=== PATIENT | female | born 1965 | race Caucasian/White ===

== ENCOUNTER 2017-07-29 13:37 | Inpatient (IN) | payer MEDICAID ==
[~2017-07-29] VITALS: Ht 167.6 cm; Wt 67.3 kg
[2017-07-29] MEDS ORDERED: LACT10SO PO (13:51)
[2017-07-29] MEDS ORDERED: SPIR50TA3 PO (13:51)
[2017-07-29] MEDS ORDERED: ALPR1TAB7 PO (13:51)
[2017-07-29] MEDS ORDERED: RIFA550T PO (13:51)
[2017-07-29] MEDS ORDERED: OXYC10TA49 PO (13:51)
[2017-07-29] MEDS ORDERED: MIDO5TAB PO (13:51)
[2017-07-29] MEDS ORDERED: VENL75CA56 PO (13:51)
[2017-07-29] MEDS ORDERED: HYDR10SY16 PO (13:51)
[2017-07-29 14:55] LABS: BILIRUBIN,TOTAL 1.1 mg/dL (0.2-1.0); CREATININE 0.7 mg/dL (0.6-1.3); POTASSIUM 3.9 mmol/L (3.5-5.1); TOTAL PROTEIN, SERUM 7.3 g/dL (6.4-8.2)
[2017-07-29 15:21] LABS: BASOPHILS % (AUTO) 0.6 % (0.0-2.0); EOSINOPHILS % (AUTO) 0.4 % (0.0-7.0); HEMATOCRIT 30.5 % (31.2-41.9); HEMOGLOBIN 10.2 g/dL (10.9-14.3); LYMPHOCYTES # (AUTO) 0.2 K/uL (20.0-40.0); LYMPHOCYTES % (AUTO) 18.6 % (20.5-51.5); MEAN CORPUSCULAR HEMOGLOBIN 30.9 uug (24.7-32.8); MEAN CORPUSCULAR HGB CONC 33 g/dL (32.3-35.6); MEAN CORPUSCULAR VOLUME 92.9 fL (75.5-95.3); MONOCYTES # (AUTO) 0.2 K/uL (2.0-10.0); MONOCYTES % (AUTO) 18.2 % (0.0-11.0); NEUTROPHILS # (AUTO) 0.8 K/uL (1.8-8.9); NEUTROPHILS % (AUTO) 62.2 % (38.5-71.5); PLATELET COUNT (AUTO) 50 K/uL (179-408); RED BLOOD CELL COUNT(AUTO) 3.29 MIL/uL (3.63-4.92)
[2017-07-29 15:33] LABS: WHITE BLOOD COUNT (AUTO) 1.3 K/uL (3.8-11.8)
[2017-07-29] MEDS ORDERED: LACTULOSE 20 G/30 ML LIQUID UDC PO ONE (16:00)
[2017-07-29 16:01] LABS: LYMPHOCYTES % (MANUAL) 26 % (20-40); NEUTROPHILS % (MANUAL) 62 % (42-75)
[2017-07-29 16:02] LABS: EOSINOPHILS % (MANUAL) 2 % (0-8); MONOCYTES % (MANUAL) 10 % (2-10)
--- NOTE | 2017-07-29 18:00 | NUR ---
Pt.was admitted from ER, A/A/Ox3 no s/s of distress.
--- NOTE | 2017-07-29 18:15 | NUR ---
SECOND CLASS WELDER:JENNA PARRA WAS PAGED FOR ADMITTING ORDERS.
[2017-07-29 18:22] VITALS: BP 99/49
--- NOTE | 2017-07-29 18:40 | NUR ---
pt is asking for pain for her abdominal hernia, BP 99/49. informed Isabell Parker COAL AND ASH SUPERVISOR and order given and okay to give with it
[2017-07-29] MEDS ORDERED: MORPHINE SULFATE 2 MG/1 ML DISP.SYRIN IV PRN (18:45)
[2017-07-29] MEDS ORDERED: ONDANSETRON 4 MG/2 ML VIAL IV PRN (19:45)
[2017-07-29] MEDS ORDERED: MAGNESIUM HYDROXIDE 30 ML LIQUID UDC PO PRN (19:45)
[2017-07-29] MEDS ORDERED: ZOLPIDEM 5 MG TABLET PO PRN (19:45)
[2017-07-29] MEDS ORDERED: ACETAMINOPHEN 325 MG TABLET PO PRN (19:45)
[2017-07-29] MEDS ORDERED: Z GUARD REMEDY PASTE 57 GM TUBE TOP PRN (19:45)
[2017-07-29 20:05] VITALS: BP 111/85
[2017-07-29] MEDS: MORPHINE SULFATE 4 MG/1 ML DISP.SYRIN IV PRN (20:41)
--- NOTE | 2017-07-29 21:00 | NUR ---
Patient alert and awake on bed. on Sinus Rhythm with HR of 84, RR of 18. Patient verbalized pain on abdominal area with a pain scale of 10, exhibiting guarding behavior to site. Patient has no sign of respiratory distress or chest pain. Administered 2mg/0.5mL of morphine. Will reassess pain after 30 minutes.
[2017-07-29] MEDS: LACTULOSE 20 G/30 ML LIQUID UDC PO SCH (21:37)
[2017-07-30 00:05] VITALS: BP 106/42
[2017-07-30 00:17] LABS: *BILIRUBIN,URIN NEGATIVE (NEGATIVE); *BLOOD, URINE NEGATIVE (NEGATIVE); *CLARITY,URINE CLEAR (CLEAR); *COLOR,URINE YELLOW (YELLOW); *KETONES,URINE NEGATIVE (NEGATIVE); *PROTEIN,URINE NEGATIVE (NEGATIVE); LEUKOCYTE ESTERASE ,URINE NEGATIVE (NEGATIVE); NITRITE, URINE NEGATIVE (NEGATIVE); UGLUCOSE NEGATIVE (NEGATIVE)
[2017-07-30 00:31] LABS: BACTERIA,URINE NONE SEEN /HPF (NONE SEEN); RBC,URINE NONE SEEN /HPF (0-3); SQUAMOUS EPITHELIAL CELL,UR FEW /HPF (NONE SEEN); WBC,URINE 0-3 /HPF (0-3)
[2017-07-30 04:00] VITALS: BP 104/46
[2017-07-30 06:07] LABS: LYMPHOCYTES # (AUTO) 0.3 K/uL (20.0-40.0); MONOCYTES # (AUTO) 0.2 K/uL (2.0-10.0); NEUTROPHILS # (AUTO) 0.7 K/uL (1.8-8.9)
[2017-07-30 06:11] LABS: BASOPHILS % (AUTO) 1.4 % (0.0-2.0); EOSINOPHILS % (AUTO) 0.6 % (0.0-7.0); HEMATOCRIT 28.2 % (31.2-41.9); HEMOGLOBIN 9.5 g/dL (10.9-14.3); LYMPHOCYTES % (AUTO) 24.7 % (20.5-51.5); MEAN CORPUSCULAR HEMOGLOBIN 30.9 uug (24.7-32.8); MEAN CORPUSCULAR HGB CONC 34 g/dL (32.3-35.6); MEAN CORPUSCULAR VOLUME 91.6 fL (75.5-95.3); MONOCYTES % (AUTO) 15.4 % (0.0-11.0); NEUTROPHILS % (AUTO) 57.9 % (38.5-71.5); RED BLOOD CELL COUNT(AUTO) 3.08 MIL/uL (3.63-4.92)
[2017-07-30 06:29] LABS: CREATININE 0.7 mg/dL (0.6-1.3); MAGNESIUM 1.5 mg/dL (1.8-2.4); PHOSPHOROUS 3.8 mg/dL (2.5-4.9); POTASSIUM 3.6 mmol/L (3.5-5.1)
[2017-07-30 06:34] LABS: PLATELET COUNT (AUTO) 47 K/uL (179-408); WHITE BLOOD COUNT (AUTO) 1.2 K/uL (3.8-11.8)
--- NOTE | 2017-07-30 07:02 | NUR ---
patient remained rested the whole night. on sinus rhythm with HR of 81. No chest pain, no SOB. pt kept clean and dry. endorsed SBAR report to day shift nurse
[2017-07-30 07:32] LABS: EOSINOPHILS % (MANUAL) 1 % (0-8); LYMPHOCYTES % (MANUAL) 26 % (20-40); MONOCYTES % (MANUAL) 14 % (2-10); NEUTROPHILS % (MANUAL) 59 % (42-75)
--- NOTE | 2017-07-30 08:00 | NUR ---
CONTINUE WITH PAIN MANAGEMENT FOR ABDOMINAL PAIN WITH RELIEF
[2017-07-30] MEDS: LACTULOSE 20 G/30 ML LIQUID UDC PO SCH ×2 (08:42→20:29)
--- NOTE | 2017-07-30 11:00 | NUR ---
SEEN BY DALILA PARRA SEE NOTES
[2017-07-30] MEDS: MORPHINE SULFATE 4 MG/1 ML DISP.SYRIN IV PRN (11:54)
[2017-07-30 12:05] VITALS: BP 96/54
[2017-07-30] MEDS: MAGNESIUM SULFATE/D5W 100 ML IV SCH ×2 (14:01→15:45)
--- NOTE | 2017-07-30 14:21 | NUR ---
ABDOMINAL BINDER APPLIED FOR ABDOMINAL HERNIA DR MCCALLUM"S DRAW HAND
[2017-07-30 16:15] VITALS: BP 97/46
[2017-07-30 19:00] VITALS: BP 95/51
--- NOTE | 2017-07-30 19:30 | NUR ---
RECEIVED PATIENT AWAKE ON BED. AO X 4. NO SIGNS OF RESPIRATORY DISTRESS, NO CHEST PAIN. IV SITE ON LFA, PATENT AND INTACT. ABD BINDER IN PLACE. DENIES ANY PAIN AT THIS TIME. SAFETY MEASURES INITIATED. KEPT CALL LIGHT WITHIN REACH.
--- NOTE | 2017-07-30 20:00 | NUR ---
AT 1954 PATIENT APPEARS ANXIOUS AND CRYING, ASKING FOR ANTIANXIETY MEDICATION. EMOTIONAL SUPPORT PROVIDED. INFORMED DALILA PARRA ON PATIENT'S CONDITION. AT 1999, DALILA PARRA ORDERED TO START PATIENT ON XANAX 1 MG Q8H PRN FOR ANXIETY. ORDER NOTED AND CARRIED OUT.
[2017-07-30] MEDS ORDERED: ALPRAZOLAM 0.5 MG TABLET PO PRN (20:15)
[2017-07-31 04:00] VITALS: BP 104/80
[2017-07-31] MEDS: MORPHINE SULFATE 4 MG/1 ML DISP.SYRIN IV PRN ×2 (06:28→11:30)
--- NOTE | 2017-07-31 06:53 | NUR ---
PATIENT REMAINED RESTED. NO SOB, NO CHEST PAIN, VITAL SIGNS WNL. SAFETY MEASURES MAINTAINED.
[2017-07-31 06:59] LABS: CREATININE 0.7 mg/dL (0.6-1.3); MAGNESIUM 1.7 mg/dL (1.8-2.4); PHOSPHOROUS 3.6 mg/dL (2.5-4.9); POTASSIUM 3.2 mmol/L (3.5-5.1)
[2017-07-31 07:13] LABS: EOSINOPHILS % (AUTO) 0.6 % (0.0-7.0); MONOCYTES # (AUTO) 0.2 K/uL (2.0-10.0)
[2017-07-31 07:22] LABS: BASOPHILS % (AUTO) 1.2 % (0.0-2.0); LYMPHOCYTES # (AUTO) 0.2 K/uL (20.0-40.0); LYMPHOCYTES % (AUTO) 19.1 % (20.5-51.5); MEAN CORPUSCULAR HEMOGLOBIN 31.6 uug (24.7-32.8); MEAN CORPUSCULAR HGB CONC 34 g/dL (32.3-35.6); MEAN CORPUSCULAR VOLUME 91.8 fL (75.5-95.3); MONOCYTES % (AUTO) 15.1 % (0.0-11.0); NEUTROPHILS # (AUTO) 0.8 K/uL (1.8-8.9); RED BLOOD CELL COUNT(AUTO) 3.15 MIL/uL (3.63-4.92)
--- NOTE | 2017-07-31 07:25 | NUR ---
Received report from water treatment specialist nurse, patient in bed awake, no distress noted, bed in low position, side rails up x2, bed alarm on.
[2017-07-31 07:34] LABS: PLATELET COUNT (AUTO) 47 K/uL (179-408); WHITE BLOOD COUNT (AUTO) 1.2 K/uL (3.8-11.8)
[2017-07-31] MEDS: LACTULOSE 20 G/30 ML LIQUID UDC PO SCH (08:56)
[2017-07-31 10:50] LABS: BAND % (MANUAL) 4 % (0-10); BASOPHILS % (MANUAL) 1 % (0-2); EOSINOPHILS % (MANUAL) 2 % (0-8); LYMPHOCYTES % (MANUAL) 19 % (20-40); MONOCYTES % (MANUAL) 16 % (2-10); NEUTROPHILS % (MANUAL) 58 % (42-75)
[2017-07-31 11:52] VITALS: BP 104/54
[2017-07-31 12:16] LABS: THYROID STIMULATING HORMONE 5.003 mIU/mL (0.358-3.740)
[2017-07-31 12:19] LABS: *RHEUMATOID FACTOR SCREEN NEGATIVE (NEGATIVE)
[2017-07-31] MEDS ORDERED: PARO25TA16 PO (14:09)
[2017-07-31] MEDS ORDERED: FOLI1TAB16 PO (14:16)
[2017-07-31] MEDS ORDERED: MAGNESIUM OXIDE 400 MG TABLET PO ONE (15:15)
--- NOTE | 2017-07-31 15:33 | NUR ---
PATIENT WAS GIVEN DISCHARGE INSTRUCTIONS, IV REMOVED, PATIENT REFUSED TO HAVE PICTURES OF ABDOMEN TAKEN. REPORT CALLED TO [facility]. BELONGINGS ARE ACCOUNTED FOR.
[2017-08-01 08:07] LABS: *IMMUNOGLOBULIN G, SERUM 1994 mg/dL (700-1600); IMMUNOGLOBULIN A, SERUM 313 mg/dL (87-352); IMMUNOGLOBULIN M, SERUM 715 mg/dL (26-217)
[2017-08-01] MEDS ORDERED: PAROXETINE HCL 10 MG TABLET PO SCH (09:00)
[2017-08-01 11:07] LABS: *ANTI-SCLERODERMA-70 AB <0.2 AI (0.0-0.9); *SJOGREN'S ANTI-SS-A >8.0 AI (0.0-0.9); *SJOGREN'S ANTI-SS-B >8.0 AI (0.0-0.9); *SMITH ANTIBODIES <0.2 AI (0.0-0.9); ANTI-DNA(DS) AB, QN 2 IU/mL (0-9)
[2017-08-01 12:06] LABS: HEPATITIS B SURFACE AB Non Reactive (.); HEPATITIS B SURFACE AG Negative (Negative)
[2017-08-03 08:09] LABS: A/G RATIO 0.6 (0.7-1.7); ALBUMIN 2.7 g/dL (2.9-4.4); ALPHA-1-GLOBULIN 0.3 g/dL (0.0-0.4); ALPHA-2-GLOBULIN 0.5 g/dL (0.4-1.0); BETA GLOBULIN 0.8 g/dL (0.7-1.3); GAMMA GLOBULIN 2.7 g/dL (0.4-1.8); GLOBULIN, TOTAL 4.3 g/dL (2.2-3.9); M-SPIKE Not Observed g/dL (Not Observed)
== END 2017-07-31 15:50 | DRG 660 ==
LOC: ER 13:37 → TELE 17:44 → MED 07-30 14:29
PROVIDERS: ADMIT Nurse Practitioner Acute Care; ATTEND Nurse Practitioner Acute Care
DX: D61.818 Other pancytopenia (principal); K76.6 Portal hypertension; K70.31 Alcoholic cirrhosis of liver with ascites; K72.90 Hepatic failure, unspecified without coma; K74.60 Unspecified cirrhosis of liver; F10.11 Alcohol abuse, in remission; Y90.9 Presence of alcohol in blood, level not specified; B19.20 Unspecified viral hepatitis C without hepatic coma; K42.9 Umbilical hernia without obstruction or gangrene; Z86.19 Personal history of other infectious and parasitic diseases; F41.9 Anxiety disorder, unspecified; F32.9 Major depressive disorder, single episode, unspecified; R74.0 Nonspecific elevation of levels of transaminase and lactic acid dehydrogenase [LDH]
CPT/HCPCS: 36415; 70030-TC; 71045; 82105; 82746; 82784; 83550; 83735; 84100; 84155; 84165; 84443; 84703; 85025; 85610; 86038; 86140; 86334; 86430; 86706; 86803; 87340; 87806; 92523; 93005; A4663; J2270; J3475; J7050

== ENCOUNTER 2018-11-25 18:14 | Inpatient (IN) | payer BC, MEDICAID ==
[~2018-11-25] VITALS: Ht 167.6 cm; Wt 68.0 kg
[~2018-11-25 18:14] MED LIST: ALPR1TAB7 PO; FOLI1TAB16 PO; HYDR10SY16 PO; LACT10SO PO; MIDO5TAB5 PO; OXYC10TA49 PO; PARO25TA16 PO; RIFA550T PO; SPIR50TA5 PO; VENL75CA56 PO
[2018-11-25] MEDS ORDERED: LACT10SO58 PO (18:39)
[2018-11-25] MEDS ORDERED: DEXT1DRO6 EACHEYE (18:39)
[2018-11-25] MEDS ORDERED: OXYC5CAP18 PO (18:39)
--- NOTE | 2018-11-25 18:49 | NUR ---
PT IS IN ROOM #1B. DR HUDSON EVALUATED THE PT.
--- NOTE | 2018-11-25 19:40 | NUR ---
DRONE SOFTWARE DEVELOPMENT ENGINEER (PREFERRED) TAMI ON THE PHONE FOR CLINICALS CALL BACK [phone] PENDING CALL BACK FOR RECEIVING PHYSICIAN FROM [facility] [phone]
[2018-11-25 19:43] LABS: EOSINOPHILS # (AUTO) 0.1 K/uL (0.0-0.7); HEMOGLOBIN 11.4 g/dL (10.9-14.3); LYMPHOCYTES # (AUTO) 0.4 K/uL (20.0-40.0); MONOCYTES # (AUTO) 0.2 K/uL (2.0-10.0); NEUTROPHILS # (AUTO) 1.1 K/uL (1.8-8.9)
[2018-11-25 19:45] LABS: BASOPHILS % (AUTO) 1.4 % (0.0-2.0); EOSINOPHILS % (AUTO) 5.2 % (0.0-7.0); HEMATOCRIT 34.9 % (31.2-41.9); LYMPHOCYTES % (AUTO) 22.2 % (20.5-51.5); MEAN CORPUSCULAR HEMOGLOBIN 30.7 uug (24.7-32.8); MEAN CORPUSCULAR HGB CONC 33 g/dL (32.3-35.6); MEAN CORPUSCULAR VOLUME 93.7 fL (75.5-95.3); MONOCYTES % (AUTO) 11.6 % (0.0-11.0); NEUTROPHILS % (AUTO) 59.6 % (38.5-71.5); PLATELET COUNT (AUTO) 72 K/uL (179-408); RED BLOOD CELL COUNT(AUTO) 3.72 MIL/uL (3.63-4.92)
[2018-11-25] MEDS ORDERED: LORAZEPAM 2 MG/1 ML VIAL IV ONE ×2 (19:45→20:45)
--- NOTE | 2018-11-25 19:45 | NUR ---
PT IS NONCOMPLIANT AND AGITATED, KEPT SAYING NO TO ALL INTERVENTIONS AND EXTREMELY CONFUSED AOX1 PT UNABLE TO BE BROUGHT TO CT AT THIS TIME DUE TO NONCOMPLIANCE, YELLING AND SCREAMING BEHAVIOR PT STILL AGITATED DESPITE IV MEDS ERMD AWARE
[2018-11-25 19:57] LABS: WHITE BLOOD COUNT (AUTO) 1.8 K/uL (3.8-11.8)
[2018-11-25 20:03] LABS: CREATININE 0.7 mg/dL (0.6-1.3); POTASSIUM 4.1 mmol/L (3.5-5.1)
[2018-11-25 20:08] LABS: BILIRUBIN,DIRECT 0.7 mg/dL (0.0-0.2); BILIRUBIN,TOTAL 1.7 mg/dL (0.2-1.0); TOTAL PROTEIN, SERUM 7.3 g/dL (6.4-8.2)
[2018-11-25 20:22] LABS: BAND % (MANUAL) 7 % (0-10); EOSINOPHILS % (MANUAL) 5 % (0-8); LYMPHOCYTES % (MANUAL) 24 % (20-40); MONOCYTES % (MANUAL) 11 % (2-10); NEUTROPHILS % (MANUAL) 53 % (42-75)
[2018-11-25 20:27] LABS: THYROID STIMULATING HORMONE 5.074 mIU/mL (0.358-3.740)
[2018-11-25] MEDS ORDERED: LORAZEPAM 2 MG/1 ML VIAL ONE ×2 (20:30→20:51)
[2018-11-25] MEDS ORDERED: diphenhydrAMINE 50 MG/1 ML VIAL IV ONE (20:45)
[2018-11-25] MEDS ORDERED: diphenhydrAMINE 50 MG/1 ML VIAL ONE (20:51)
--- NOTE | 2018-11-25 21:23 | NUR ---
PT TRANSPORTED VIA GURNEY TO CT ACCOMPANIED BY SRAVANI LEONARDOX2 UP BED AT LOWEST POSITION G20 SALINE LOCK INTACT TO LEFT FOREARM
--- NOTE | 2018-11-25 21:39 | NUR ---
PT BROUGHT BACK BY HVAC INSTALLER VIA UNABLE TO OBTAIN CT SCAN DUE TO NONCOMPLIANCE Addendum: 11/25/18 at 2142 by NEPTALI TECH STATES ABLE TO OBTAIN CT SCAN
[2018-11-25] MEDS ORDERED: Medication Not On Formulary EA (Oxycodone Hcl 5 MG) PO SCH (22:00)
[2018-11-25] MEDS ORDERED: Medication Not On Formulary EA (Lactulose (Duphalac) 30 ML) PO SCH (22:00)
[2018-11-25] MEDS ORDERED: HALOPERIDOL LACTATE 5 MG/1 ML VIAL IM PRN (22:00)
--- NOTE | 2018-11-25 22:11 | NUR ---
CALL BACK RECEIVED FR ORANGE PEEL OPERATOR, WAITING ON MD TO MD YESICA BURGESS (DR KAUFMAN)
[2018-11-25 22:26] LABS: *BLOOD, URINE NEGATIVE (NEGATIVE); *COLOR,URINE DARK YELLOW (YELLOW); *KETONES,URINE 1+ (NEGATIVE); *UROBILINOGEN,URINE 0.2 E.U./dl (NORMAL); LEUKOCYTE ESTERASE ,URINE NEGATIVE (NEGATIVE); NITRITE, URINE NEGATIVE (NEGATIVE); PH,URINE 5.5 (5.0-8.0); UGLUCOSE NEGATIVE (NEGATIVE)
[2018-11-25 22:34] LABS: *BILIRUBIN,URIN 1+ (NEGATIVE); *CLARITY,URINE HAZY (CLEAR)
[2018-11-25 22:37] LABS: BACTERIA,URINE NONE SEEN /HPF (NONE SEEN); RBC,URINE 0-3 /HPF (0-3); SQUAMOUS EPITHELIAL CELL,UR MODERATE /HPF (NONE SEEN)
[2018-11-25 22:38] LABS: MUCUS,URINE MANY /LPF (0-FEW)
--- NOTE | 2018-11-25 22:43 | NUR ---
ERMD ON THE PHONE WITH YESCIA KAUFMAN MD Addendum: 11/25/18 at 2244 by NEPTALI ERMD ON THE PHONE WITH TRAINS DISPATCHER SUPERVISOR PT WILL BE ADMITTED TO [facility]
--- NOTE | 2018-11-25 22:45 | NUR ---
DAISY ON THE PHONE WITH ADOBE BLOCK MAKER ([facility]) DR AZUL
--- NOTE | 2018-11-25 23:13 | NUR ---
HAND OFF AND SBAR GIVEN TO WILL RN PENDING CALL BACK FROM DR AZUL PT WILL BE ADMITTED TO TELE RM 307 DX AMS L FOREARM G20 SALINE LOCK INTACT PT AWAKE BUT STILL CONFUSED SIDERAILSX2 UP, BED AT LOWEST POSITION
--- NOTE | 2018-11-25 23:20 | NUR ---
TRANSPORTED VIA GURNEY ACCOMPANIED BY ERLVN MRSA SURVEILLANCE DONE BOTH NARES ALL BELONGINGS W/ PT SIDERAILSX2 UP BED AT LOWEST POSITION
--- NOTE | 2018-11-25 23:30 | NUR ---
ADMITTED IN MED SURG FLOOR UNDER THE CARE OF DR. IRIZARRY. PATIENT ALERT BUT MENTALLY ALTERED, POOR HISTORIAN, BODY CHECK DONE WITH BILATERAL FEET DRYNESS, ABDOMINAL INCISION SCAR, NO DENTURES, SAVITA JUDD ASSESSMENT FOR PAIN WITH NOTED MILD GEN BODY PAIN. KEPT COMFORTABLE, BED ALARM WAS PUT ON FOR RISK FOR FALL. CONT TO MONITOR.
[2018-11-26 01:00] VITALS: BP 107/38
[2018-11-26 04:00] VITALS: BP 122/52
--- NOTE | 2018-11-26 05:34 | NUR ---
PATIENT ALERT BUT ALTERED, NO S/S OF CHEST PAIN, PATIENT RESISTIVE TO CARE, REFUSED TO TURN AND REPOSITION. PATIENT WAS KEPT CLEAN AND DRY. PATIENT HAS EPISODE OF YELLING AND SCREAMING WHEN PROVIDING ADL'S, CONT TO MONITOR.
[2018-11-26 06:56] LABS: EOSINOPHILS # (AUTO) 0.1 K/uL (0.0-0.7); HEMOGLOBIN 11.3 g/dL (10.9-14.3); MEAN CORPUSCULAR VOLUME 94.9 fL (75.5-95.3); MONOCYTES # (AUTO) 0.1 K/uL (2.0-10.0); NEUTROPHILS # (AUTO) 1.3 K/uL (1.8-8.9)
[2018-11-26 07:06] LABS: THYROID STIMULATING HORMONE 7.03 mIU/mL (0.358-3.740)
[2018-11-26 07:11] LABS: BASOPHILS % (AUTO) 0.7 % (0.0-2.0); HEMATOCRIT 34.4 % (31.2-41.9); LYMPHOCYTES # (AUTO) 0.2 K/uL (20.0-40.0); LYMPHOCYTES % (AUTO) 14.3 % (20.5-51.5); MEAN CORPUSCULAR HEMOGLOBIN 31.2 uug (24.7-32.8); MEAN CORPUSCULAR HGB CONC 33 g/dL (32.3-35.6); MONOCYTES % (AUTO) 8.4 % (0.0-11.0); NEUTROPHILS % (AUTO) 73.6 % (38.5-71.5); RED BLOOD CELL COUNT(AUTO) 3.62 MIL/uL (3.63-4.92)
[2018-11-26 07:13] LABS: WHITE BLOOD COUNT (AUTO) 1.7 K/uL (3.8-11.8)
[2018-11-26 07:14] LABS: PLATELET COUNT (AUTO) 67 K/uL (179-408)
--- NOTE | 2018-11-26 07:17 | NUR ---
PATIENT LAB REPORT WBC 1.7 AND PLATELET 67. ENDORSED TO YUSEF ELIZONDO FOR FOLLOW UP WITH .
[2018-11-26 07:23] LABS: BILIRUBIN,TOTAL 1.8 mg/dL (0.2-1.0); CREATININE 0.6 mg/dL (0.6-1.3); MAGNESIUM 1.7 mg/dL (1.8-2.4); PHOSPHOROUS 2.9 mg/dL (2.5-4.9); POTASSIUM 4.1 mmol/L (3.5-5.1); TOTAL PROTEIN, SERUM 7.6 g/dL (6.4-8.2)
--- NOTE | 2018-11-26 07:45 | NUR ---
INFORMED DR LOCO OF CRITICAL LAB VALUE OF WBC 1.[address] AWARE. NO NEW ORDERS GIVEN. Addendum: 11/26/18 at 0814 by YUSEF CASTILLO RN RECEIVED PT RESTING COMFORTABLY. NO SIGNS OF ACUTE DISTRESS OR SOB NOTED. BED LOCKED IN LOW POSITION. CRITICAL LAB VALUES GIVEN TO DR LOCO. CALL LIGHT WITHIN REACH. WILL CONTINUE TO MONITOR.
[2018-11-26] MEDS: FOLIC ACID 1 MG TABLET PO SCH (09:01)
[2018-11-26] MEDS: VENLAFAXINE XR 75 MG CAP.SR.24H PO SCH (09:01)
[2018-11-26] MEDS: SPIRONOLACTONE 50 MG TABLET PO SCH (09:02)
[2018-11-26] MEDS: MIDODRINE HCL 5 MG TABLET PO SCH ×2 (09:04→18:15)
[2018-11-26] MEDS ORDERED: LACTULOSE 20 G/30 ML LIQUID UDC PO PRN (09:45)
[2018-11-26] MEDS ORDERED: OXYCODONE HCL 5 MG TABLET PO PRN (09:45)
[2018-11-26] MEDS ORDERED: ALPRAZOLAM 0.5 MG TABLET PO PRN (09:45)
[2018-11-26 11:14] LABS: BAND % (MANUAL) 7 % (0-10); BASOPHILS % (MANUAL) 2 % (0-2); EOSINOPHILS % (MANUAL) 2 % (0-8); LYMPHOCYTES % (MANUAL) 10 % (20-40); MONOCYTES % (MANUAL) 5 % (2-10); NEUTROPHILS % (MANUAL) 74 % (42-75)
[2018-11-26 11:31] VITALS: BP 119/46
--- NOTE | 2018-11-26 12:52 | NUR ---
PT RESTING COMFORTABLY IN BED. PT ASLEEP. NO SIGNS OF ACUTE DISTRESS OR SOB. CALL LIGHT WITHIN REACH. BED LOCKED IN LOW POSITION. PT IS MEDICATION COMPLIANT. WILL CONTINUE TO MONITOR.
[2018-11-26 15:32] VITALS: BP 101/46
--- NOTE | 2018-11-26 18:00 | NUR ---
PT RESTING COMFORTABLY IN BED. IV CHANGED TO RIGHT HAND. CURRENTLY IV RUNNING WITH 2ND BAG OF MAG. PT IS MED COMPLIANT. NO ACUTE DISTRESS NOTED. NO SOB NOTED. CALL LIGHT WITHIN REACH. BED LOCKED IN LOW POSITION. REPORT GIVEN TO [facility] REGISTRY NURSE.
[2018-11-26] MEDS: MAGNESIUM SULFATE/D5W 100 ML IV SCH ×2 (18:15→19:12)
[2018-11-26 20:21] VITALS: BP 102/41
[2018-11-26] MEDS: LACTULOSE 20 G/30 ML LIQUID UDC PO SCH (21:00)
[2018-11-27 05:42] VITALS: BP 111/55
[2018-11-27] MEDS ORDERED: LEVOTHYROXINE SODIUM 25 MCG TABLET PO SCH (07:00)
--- NOTE | 2018-11-27 07:21 | NUR ---
PT RESTING COMFORTABLY IN BED. NO SIGNS OF ACUTE DISTRESS OR SOB NOTED. BED LOCKED IN LOW POSITION. CALL LIGHT WITHIN REACH. SAFETY MEASURES OBSERVED AND IMPLEMENTED. WILL CONTINUE TO MONITOR.
[2018-11-27] MEDS: VENLAFAXINE XR 75 MG CAP.SR.24H PO SCH (09:07)
[2018-11-27] MEDS: LACTULOSE 20 G/30 ML LIQUID UDC PO SCH (09:07)
[2018-11-27] MEDS: FOLIC ACID 1 MG TABLET PO SCH (09:08)
[2018-11-27] MEDS: SPIRONOLACTONE 50 MG TABLET PO SCH (09:08)
[2018-11-27] MEDS: MIDODRINE HCL 5 MG TABLET PO SCH ×2 (09:08→17:00)
--- NOTE | 2018-11-27 11:33 | NUR ---
PT IS MEDICATION COMPLIANT. PT DENIES PAIN AT THIS TIME. NO SIGNS OF ACUTE DISTRESS OR SOB AT THIS TIME. BED LOCKED IN LOW POSITION. CALL LIGHT WITHIN REACH. WILL CONTINUE TO MONITOR.
[2018-11-27 11:54] VITALS: BP 102/47
[2018-11-27] MEDS ORDERED: FILGRASTIM 300 MCG/ML VIAL SUBCUT ONE (13:15)
[2018-11-27] MEDS ORDERED: MULT1TAB73 PO (13:34)
[2018-11-27] MEDS ORDERED: LACT10SO PO (13:34)
[2018-11-27] MEDS ORDERED: PROT946L PO (13:36)
[2018-11-27] MEDS ORDERED: TBO-FILGRASTIM 300 MCG/0.5 ML SYRINGE SQ ONE (14:00)
--- NOTE | 2018-11-27 16:36 | NUR ---
pt is resting comfortably in bed. no acute distress noted. no sob noted. PT AWAITING DISCHARGE TRANSPORT TO ARRIVE AT 1800. BED LOCKED AND IN LOW POSITION. CALL LIGHT WITHIN REACH. WILL CONTINUE TO MONITOR.
[2018-11-27 16:40] VITALS: BP 102/42
--- NOTE | 2018-11-27 18:00 | NUR ---
PT DISCHARGED TO [facility]. PT TRANSPORTED VIA AMBULANCE. DISCHARGE INSTRUCTIONS GIVEN TO AMBULANCE STAFF. BELONGINGS RETURNED. NO ACUTE DISTRESS OR SOB NOTED.
[2018-11-28] MEDS ORDERED: RIFAXIMIN 550 MG TABLET PO SCH (09:00)
== END 2018-11-27 18:00 | DRG 280 ==
LOC: ER 18:16 → TELE3 23:11 → MEDSURG3 11-26 01:00
PROVIDERS: ADMIT Internal Medicine; ATTEND Internal Medicine
DX: K70.40 Alcoholic hepatic failure without coma (principal); K70.31 Alcoholic cirrhosis of liver with ascites; E43 Unspecified severe protein-calorie malnutrition; D61.818 Other pancytopenia; J90 Pleural effusion, not elsewhere classified; B19.20 Unspecified viral hepatitis C without hepatic coma; F10.10 Alcohol abuse, uncomplicated; Y90.9 Presence of alcohol in blood, level not specified; Z68.24 Body mass index [BMI] 24.0-24.9, adult; M50.30 Other cervical disc degeneration, unspecified cervical region; K42.9 Umbilical hernia without obstruction or gangrene; E27.40 Unspecified adrenocortical insufficiency; I95.1 Orthostatic hypotension; F41.9 Anxiety disorder, unspecified; E83.42 Hypomagnesemia; E03.9 Hypothyroidism, unspecified; M43.12 Spondylolisthesis, cervical region; F32.9 Major depressive disorder, single episode, unspecified; Z87.01 Personal history of pneumonia (recurrent)
CPT/HCPCS: 36415; 70030-TC; 70450; 71045; 72125; 83550; 83605; 83735; 84100; 84443; 85025; 85730; 87040; 87077; 87086; 93005; A4663; C1758; G0378; J1200; J1447; J2060; J3475

== ENCOUNTER 2020-11-26 20:11 | Emergency (ER) | payer BC ==
[~2020-11-26] VITALS: Ht 162.6 cm; Wt 89.8 kg
[~2020-11-26 20:11] MED LIST changes: +DEXT1DRO6 EACHEYE; -FOLI1TAB16 PO; +FOLI1TAB94 PO; -LACT10SO PO; +MULT-594 PO; -PARO25TA16 PO; +PROT946L PO; -RIFA550T PO
--- NOTE | 2020-11-26 20:15 | NUR ---
Patient BIB [facility] unit 712 from [facility] for c/o worsening chronic abdominal pain x1 day.
--- NOTE | 2020-11-26 20:20 | NUR ---
Dr. Bennett on bedside for MSE.
[2020-11-26 20:30] LABS: *BILIRUBIN,URIN NEGATIVE (NEGATIVE); *CLARITY,URINE CLEAR (CLEAR); *COLOR,URINE YELLOW (YELLOW); *KETONES,URINE TRACE (NEGATIVE); *UROBILINOGEN,URINE 0.2 E.U./dl (NORMAL); LEUKOCYTE ESTERASE ,URINE 1+ (NEGATIVE); NITRITE, URINE NEGATIVE (NEGATIVE); UGLUCOSE NEGATIVE (NEGATIVE)
[2020-11-26] MEDS ORDERED: HYDROMORPHONE 1 MG/1 ML DISP.SYRIN IV ONE (20:30)
[2020-11-26] MEDS ORDERED: ONDANSETRON 4 MG/2 ML VIAL IV ONE (20:30)
[2020-11-26 20:31] LABS: *BLOOD, URINE TRACE (NEGATIVE)
[2020-11-26] MEDS ORDERED: HYDROMORPHONE 1 MG/1 ML DISP.SYRIN ONE (20:36)
[2020-11-26] MEDS ORDERED: ONDANSETRON 4 MG/2 ML VIAL ONE (20:36)
[2020-11-26 20:38] LABS: BACTERIA,URINE FEW /HPF (NONE SEEN); RBC,URINE 0-3 /HPF (0-3); SQUAMOUS EPITHELIAL CELL,UR FEW /HPF (NONE SEEN)
[2020-11-26] MEDS ORDERED: CEFTRIAXONE 1 G in IV DEXTROSE 5% 50 ML IV ONE (20:45)
[2020-11-26] MEDS ORDERED: B CO1CAP6 PO (20:56)
[2020-11-26] MEDS ORDERED: HYDR10TA37 PO (20:56)
[2020-11-26] MEDS ORDERED: OLAN5TAB3 PO (20:56)
[2020-11-26] MEDS ORDERED: LACT10SO58 PO (20:56)
[2020-11-26] MEDS ORDERED: GABA-532 PO (20:56)
[2020-11-26] MEDS ORDERED: SERT25TA PO (20:56)
[2020-11-26] MEDS ORDERED: IBUP-1953 PO (20:56)
[2020-11-26 21:02] LABS: CREATININE 0.9 mg/dL (0.6-1.3); POTASSIUM 3.8 mmol/L (3.5-5.1)
[2020-11-26 21:07] LABS: BILIRUBIN,DIRECT 0.5 mg/dL (0.0-0.2); BILIRUBIN,TOTAL 1.2 mg/dL (0.2-1.0); TOTAL PROTEIN, SERUM 7.3 g/dL (6.4-8.2)
[2020-11-26 21:09] LABS: HEMATOCRIT 31.2 % (31.2-41.9); MEAN CORPUSCULAR VOLUME 97.9 fL (75.5-95.3)
[2020-11-26 21:11] LABS: PLATELET COUNT (AUTO) 33 K/uL (179-408)
[2020-11-26] MEDS ORDERED: CEFTRIAXONE /D5W 50ML IVPB **ER PYXIS IV ONE (21:18)
[2020-11-26] MEDS ORDERED: SWABABLE VALVE TRANSFER SET EA MC ONE (21:30)
[2020-11-26] MEDS ORDERED: IV NORMAL SALINE 250 ML IV ONE (21:30)
[2020-11-26] MEDS ORDERED: IOHEXOL 300MG/ML 100 ML INFUS..BTL ONE (21:30)
[2020-11-26 21:40] LABS: BAND % (MANUAL) 3 % (0-10); BASOPHILS % (MANUAL) 1 % (0-2); EOSINOPHILS % (MANUAL) 3 % (0-8); MONOCYTES % (MANUAL) 8 % (2-10); NEUTROPHILS % (MANUAL) 60 % (42-75)
[2020-11-26 21:41] LABS: LYMPHOCYTES % (MANUAL) 25 % (20-40)
--- NOTE | 2020-11-26 22:06 | NUR ---
Back from CT.
--- NOTE | 2020-11-27 00:30 | NUR ---
Dr Bennett on panel call with Dr. Hernández. Patient accepted for admission to [facility] med surg unit. Dx. Abdominal pain and failing outpatient tx.
--- NOTE | 2020-11-27 02:10 | NUR ---
Patient asked for water and jello and provided. Patient also urinated x1 in the toilet then back to bed. In no apparent distress.
--- NOTE | 2020-11-27 02:53 | NUR ---
Telephone call to [facility], spoke to CARO Gong and gave report regarding patient condition and states understanding. Patient will be admitted on telemetry floor on room 518.
--- NOTE | 2020-11-27 03:02 | NUR ---
Telephone call to [facility] for transportation, no ride available per Josue. Telephone call to [facility] spoke to Feb, earliest picker/puller will be at 0730. Telephone call to CARO Gong and informed of ambulace ETA. Also called GUALBERTO Gomez and also informed of [facility] ambulance ETA.
--- NOTE | 2020-11-27 03:15 | NUR ---
Patient sleeping at this time. In no apparent distress. Denies any pain or SOB when asked.
--- NOTE | 2020-11-27 07:50 | NUR ---
[facility] HERE TO TAKE PT TO [facility]; PT AWAKE, ALERT AND FULLY ORIENTED; VERBALLY RESPONSIVE AND AWARE OF TRANSFER. REPORT GIVEN TO EMT TEAM. PT DISCHARGED IN STABLE CONDITION.
== END 2020-11-27 08:06 | disposition short-term general hospital (02) ==
LOC: ER 20:12
DX: R10.9 Unspecified abdominal pain (principal); G89.4 Chronic pain syndrome; D61.818 Other pancytopenia; K74.60 Unspecified cirrhosis of liver; N89.8 Other specified noninflammatory disorders of vagina; R18.8 Other ascites; Z20.822 Contact with and (suspected) exposure to COVID-19; Z78.0 Asymptomatic menopausal state; Z87.01 Personal history of pneumonia (recurrent)
CPT/HCPCS: 36415; 70030-TC; 71045; 83690; 85025; 85730; 87086; 87210; 93005; A4663; J0696; J1170; J2405; J7030; J7050; Q9967

== ENCOUNTER → 2021-12-20 | Emergency (ER) | payer BC ==
[~2021-12-20] VITALS: Ht 162.6 cm; Wt 72.6 kg
[~2021-12-20] MED LIST changes: +B CO1CAP6 PO; -DEXT1DRO6 EACHEYE; +GABA-532 PO; -HYDR10SY16 PO; +HYDR10TA37 PO; +HYDROMORPHONE 1 MG/1 ML DISP.SYRIN IV ONE; +HYDROMORPHONE 1 MG/1 ML DISP.SYRIN ONE; +IBUP-1953 PO; +IV NORMAL SALINE 1000 ML BAG IV ONE; +LACT10SO58 PO; +MAGN400C PO; +MAGNESIUM SULFATE/D5W 100 ML ONE; -MIDO5TAB5 PO; -MULT-594 PO; +OLAN5TAB3 PO; +PANT20TA2 PO; +POTA10CA43 PO; +POTASSIUM BICARBONATE/CIT AC 25 MEQ TABLET.EFF ONE; +POTASSIUM BICARBONATE/CIT AC 25 MEQ TABLET.EFF PO ONE; -PROT946L PO; +RIFA550T PO; +SERT100T PO; +SERT25TA PO; +SPIR25TA6 PO; +SUCR1TAB PO; -VENL75CA56 PO; +VIT1TABL46 PO
--- NOTE | 2021-12-20 00:06 | NUR ---
Pt. BIB 2 bell spinner.
[2021-12-20 01:17] LABS: HEMATOCRIT 28.7 % (31.2-41.9); MEAN CORPUSCULAR HEMOGLOBIN 31.5 uug (24.7-32.8); MEAN CORPUSCULAR VOLUME 92.6 fL (75.5-95.3)
[2021-12-20 01:21] LABS: CARBON DIOXIDE 31 mmol/L (21-32); CHLORIDE 103 mmol/L (98-107); CREATININE 0.8 mg/dL (0.6-1.3); GLUCOSE 76 mg/dL (74-106); POTASSIUM 3.4 mmol/L (3.5-5.1); UREA NITROGEN, BLOOD 9 mg/dL (7-18)
[2021-12-20 01:24] LABS: PLATELET COUNT (AUTO) 31 K/uL (179-408)
[2021-12-20 01:30] LABS: ALANINE AMINOTRANSFERASE 30 U/L (14-59); ALKALINE PHOSPHATASE 134 U/L (50-136); ASPARTATE AMINOTRANSFERASE 54 U/L (15-37); BILIRUBIN,DIRECT 0.5 mg/dL (0.0-0.2); BILIRUBIN,TOTAL 1.1 mg/dL (0.2-1.0); LIPASE 56 U/L (73-393); TOTAL PROTEIN, SERUM 7.5 g/dL (6.4-8.2)
[2021-12-20] MEDS: MAGNESIUM SULFATE/D5W 100 ML IV SCH ×4 (02:41→04:12)
--- NOTE | 2021-12-20 02:45 | NUR ---
Pt. in bed, awake, food given at this time, gave all due meds as ordered.
--- NOTE | 2021-12-20 02:54 | NUR ---
CT ABD, and pelvis with no contrast in process
--- NOTE | 2021-12-20 03:05 | NUR ---
Pt. back from CT
--- NOTE | 2021-12-20 04:11 | NUR ---
Pt. will be discharge back to [facility], [facility] will be picked up in 30-45 mins.
[2021-12-20 04:14] VITALS: BP 120/80
--- NOTE | 2021-12-20 04:25 | NUR ---
D/C IV SL, awaiting for [facility] to come package pick up patient.
--- NOTE | 2021-12-20 04:30 | NUR ---
[facility] ambulance came, picking up patient at this time. VSS
[2021-12-20 05:51] LABS: BAND % (MANUAL) 4 % (0-10); BASOPHILS % (MANUAL) 0 % (0-2); EOSINOPHILS % (MANUAL) 0 % (0-8); LYMPHOCYTES % (MANUAL) 15 % (20-40); MONOCYTES % (MANUAL) 10 % (2-10); NEUTROPHILS % (MANUAL) 71 % (42-75)
== END ==
LOC: ER 00:08
DX: D61.818 Other pancytopenia (principal); E83.42 Hypomagnesemia; K74.60 Unspecified cirrhosis of liver; R18.8 Other ascites; Z87.01 Personal history of pneumonia (recurrent); Z79.899 Other long term (current) drug therapy; G89.29 Other chronic pain; Z86.19 Personal history of other infectious and parasitic diseases
CPT/HCPCS: 99285; 74176; 96365; 96361; 96366; 96375; 80076; 80048; 82140; 82607; 83690; 83735; 85025; 85730; 84484; 36415; 93005; 83605; 85007; J3475 ×3; J1170; J7040; 70030-TC; A4663

== ENCOUNTER 2022-03-05 14:14 | Inpatient (IN) | payer BC ==
[~2022-03-05] VITALS: Ht 162.6 cm; Wt 70.8 kg
[~2022-03-05 14:14] MED LIST changes: -B CO1CAP6 PO; -FOLI1TAB94 PO; -GABA-532 PO; -HYDR10TA37 PO; -HYDROMORPHONE 1 MG/1 ML DISP.SYRIN IV ONE; -HYDROMORPHONE 1 MG/1 ML DISP.SYRIN ONE; -IBUP-1953 PO; -IV NORMAL SALINE 1000 ML BAG IV ONE; -MAGNESIUM SULFATE/D5W 100 ML ONE; -OLAN5TAB3 PO; -POTASSIUM BICARBONATE/CIT AC 25 MEQ TABLET.EFF ONE; -POTASSIUM BICARBONATE/CIT AC 25 MEQ TABLET.EFF PO ONE; -SERT25TA PO
[2022-03-05] MEDS ORDERED: CHOL100045 PO (14:48)
[2022-03-05 15:29] LABS: HEMATOCRIT 28.1 % (31.2-41.9); MEAN CORPUSCULAR HEMOGLOBIN 29.8 uug (24.7-32.8); MEAN CORPUSCULAR VOLUME 90.7 fL (75.5-95.3)
[2022-03-05 15:33] LABS: *BLOOD, URINE NEGATIVE (NEGATIVE); *CLARITY,URINE CLEAR (CLEAR); *COLOR,URINE YELLOW (YELLOW); *KETONES,URINE TRACE (NEGATIVE); *UROBILINOGEN,URINE 0.2 E.U./dl (NORMAL); LEUKOCYTE ESTERASE ,URINE NEGATIVE (NEGATIVE); NITRITE, URINE NEGATIVE (NEGATIVE); PH,URINE 5.5 (5.0-8.0); UGLUCOSE NEGATIVE (NEGATIVE)
[2022-03-05 15:37] LABS: PLATELET COUNT (AUTO) 38 K/uL (179-408)
[2022-03-05 15:39] LABS: CREATININE 0.7 mg/dL (0.6-1.3); POTASSIUM 3.7 mmol/L (3.5-5.1)
[2022-03-05 15:40] LABS: *BILIRUBIN,URIN 1+ (NEGATIVE)
[2022-03-05 15:45] LABS: BILIRUBIN,DIRECT 0.5 mg/dL (0.0-0.2); BILIRUBIN,TOTAL 1.4 mg/dL (0.2-1.0); TOTAL PROTEIN, SERUM 7.5 g/dL (6.4-8.2)
[2022-03-05] MEDS ORDERED: FUROSEMIDE 40 MG/4 ML VIAL IV ONE (16:00)
[2022-03-05] MEDS ORDERED: FUROSEMIDE 20 MG/2 ML VIAL ONE (16:07)
[2022-03-05] MEDS ORDERED: FUROSEMIDE 20 MG/2 ML VIAL IV ONE (16:15)
[2022-03-05] MEDS ORDERED: ONDANSETRON 4 MG/2 ML VIAL IV PRN (17:30)
[2022-03-05] MEDS ORDERED: REMEDY ESSENTIAL ZINC PASTE 113 GM TP PRN (17:30)
[2022-03-05] MEDS ORDERED: MAGNESIUM HYDROXIDE 30 ML LIQUID UDC PO PRN (17:30)
[2022-03-05] MEDS: MIDODRINE HCL 2.5 MG TABLET PO SCH (20:15)
[2022-03-05] MEDS ORDERED: MIDODRINE HCL 5 MG TABLET ONE (20:39)
[2022-03-05 21:00] VITALS: BP 75/36
[2022-03-05] MEDS: MAGNESIUM OXIDE 400 MG TABLET PO SCH (22:43)
[2022-03-05] MEDS: LACTULOSE 20 G/30 ML LIQUID UDC PO SCH (22:43)
[2022-03-05] MEDS: MORPHINE SULFATE 4 MG/1 ML DISP.SYRIN IV PRN (22:43)
[2022-03-06] VITALS: BP 97/43
[2022-03-06 04:00] VITALS: BP 94/44
[2022-03-06] MEDS: MORPHINE SULFATE 4 MG/1 ML DISP.SYRIN IV PRN ×2 (04:19→20:23)
[2022-03-06] MEDS: LACTULOSE 20 G/30 ML LIQUID UDC PO SCH ×3 (06:09→21:37)
[2022-03-06] MEDS: PANTOPRAZOLE SODIUM 40 MG TABLET.DR PO SCH (06:09)
[2022-03-06 07:08] LABS: CREATININE 0.7 mg/dL (0.6-1.3); MAGNESIUM 1.5 mg/dL (1.8-2.4); PHOSPHOROUS 3.8 mg/dL (2.5-4.9); POTASSIUM 3.5 mmol/L (3.5-5.1)
[2022-03-06] MEDS: SUCRALFATE 1 G/10 ML LIQUID UDC PO SCH ×2 (07:45→16:09)
[2022-03-06 08:10] LABS: HEMATOCRIT 29.9 % (31.2-41.9); MEAN CORPUSCULAR HEMOGLOBIN 29.7 uug (24.7-32.8); MEAN CORPUSCULAR VOLUME 89.6 fL (75.5-95.3)
[2022-03-06 08:17] LABS: PLATELET COUNT (AUTO) 39 K/uL (179-408)
[2022-03-06] MEDS: SPIRONOLACTONE 50 MG TABLET PO SCH (08:22)
[2022-03-06] MEDS: CHOLECALCIFEROL 1,000 UNIT TABLET PO SCH (08:22)
[2022-03-06] MEDS: FOLIC ACID/VITAMIN B COMP W-C TABLET PO SCH (08:22)
[2022-03-06] MEDS: FUROSEMIDE 20 MG/2 ML VIAL IV SCH ×2 (08:23→20:23)
[2022-03-06] MEDS: MIDODRINE HCL 2.5 MG TABLET PO SCH ×3 (08:36→16:09)
[2022-03-06] MEDS ORDERED: SUCRALFATE 1 G TABLET PO SCH (09:00)
[2022-03-06] MEDS: MAGNESIUM SULFATE/D5W 100 ML IV SCH ×2 (09:41→10:15)
[2022-03-06 12:00] VITALS: BP 98/45
[2022-03-06 15:57] LABS: LYMPHOCYTES % (MANUAL) 9 % (20-40); MONOCYTES % (MANUAL) 7 % (2-10); NEUTROPHILS % (MANUAL) 84 % (42-75)
[2022-03-06 16:00] VITALS: BP 101/48
[2022-03-06] MEDS: SPIRONOLACTONE 25 MG TABLET PO SCH (17:15)
[2022-03-06 20:00] VITALS: BP 104/52
[2022-03-06] MEDS: MAGNESIUM OXIDE 400 MG TABLET PO SCH (20:23)
[2022-03-07] VITALS (8 sets, daily range): BP systolic 88–101; BP diastolic 40–58
[2022-03-07] MEDS: MORPHINE SULFATE 4 MG/1 ML DISP.SYRIN IV PRN ×4 (02:22→19:02)
[2022-03-07] MEDS: PANTOPRAZOLE SODIUM 40 MG TABLET.DR PO SCH (06:01)
[2022-03-07] MEDS: LACTULOSE 20 G/30 ML LIQUID UDC PO SCH ×3 (06:01→21:17)
[2022-03-07] MEDS: SUCRALFATE 1 G/10 ML LIQUID UDC PO SCH ×2 (07:30→16:55)
[2022-03-07 07:32] LABS: CREATININE 0.8 mg/dL (0.6-1.3)
[2022-03-07 08:17] LABS: HEMATOCRIT 27.8 % (31.2-41.9); MEAN CORPUSCULAR HEMOGLOBIN 30.5 uug (24.7-32.8); MEAN CORPUSCULAR VOLUME 89.6 fL (75.5-95.3)
[2022-03-07 08:57] LABS: PLATELET COUNT (AUTO) 41 K/uL (179-408)
[2022-03-07] MEDS: FUROSEMIDE 20 MG/2 ML VIAL IV SCH ×2 (10:21→21:15)
[2022-03-07] MEDS: SPIRONOLACTONE 50 MG TABLET PO SCH (10:21)
[2022-03-07] MEDS: FOLIC ACID/VITAMIN B COMP W-C TABLET PO SCH (10:22)
[2022-03-07] MEDS: CHOLECALCIFEROL 1,000 UNIT TABLET PO SCH (10:22)
[2022-03-07] MEDS: MIDODRINE HCL 2.5 MG TABLET PO SCH ×3 (10:35→16:56)
[2022-03-07] MEDS: MAGNESIUM SULFATE/D5W 100 ML IV SCH ×2 (10:37→11:46)
[2022-03-07] MEDS: HYDROCODONE/APAP 5-325MG TABLET PO PRN (10:37)
[2022-03-07] MEDS ORDERED: POTASSIUM CHLORIDE 20 MEQ TAB.PRT.SR PO ONE ×2 (11:00→13:00)
[2022-03-07] MEDS ORDERED: ALBUMIN HUMAN 25% 100 ML IV ONE (15:00)
[2022-03-07] MEDS: SPIRONOLACTONE 25 MG TABLET PO SCH (17:53)
[2022-03-07] MEDS: MAGNESIUM OXIDE 400 MG TABLET PO SCH (21:16)
[2022-03-08] VITALS: BP 99/48
[2022-03-08] MEDS: MORPHINE SULFATE 4 MG/1 ML DISP.SYRIN IV PRN (02:32)
[2022-03-08 04:00] VITALS: BP 94/48
[2022-03-08] MEDS: LACTULOSE 20 G/30 ML LIQUID UDC PO SCH ×2 (05:51→15:01)
[2022-03-08] MEDS: PANTOPRAZOLE SODIUM 40 MG TABLET.DR PO SCH (06:25)
[2022-03-08 07:27] LABS: HEMATOCRIT 31.5 % (31.2-41.9); MEAN CORPUSCULAR HEMOGLOBIN 29.6 uug (24.7-32.8); MEAN CORPUSCULAR VOLUME 90.3 fL (75.5-95.3)
[2022-03-08 07:40] LABS: CREATININE 0.9 mg/dL (0.6-1.3); POTASSIUM 3.8 mmol/L (3.5-5.1)
[2022-03-08 08:19] LABS: PLATELET COUNT (AUTO) 41 K/uL (179-408)
[2022-03-08] MEDS: SPIRONOLACTONE 50 MG TABLET PO SCH (09:00)
[2022-03-08] MEDS: FOLIC ACID/VITAMIN B COMP W-C TABLET PO SCH (09:00)
[2022-03-08] MEDS: SUCRALFATE 1 G/10 ML LIQUID UDC PO SCH (09:00)
[2022-03-08] MEDS: FUROSEMIDE 20 MG/2 ML VIAL IV SCH (09:00)
[2022-03-08] MEDS: HYDROCODONE/APAP 5-325MG TABLET PO PRN ×2 (09:01→15:25)
[2022-03-08] MEDS: CHOLECALCIFEROL 1,000 UNIT TABLET PO SCH (09:01)
[2022-03-08] MEDS: MIDODRINE HCL 2.5 MG TABLET PO SCH ×2 (09:31→13:06)
[2022-03-08 09:32] VITALS: BP 125/50
[2022-03-08] MEDS ORDERED: FURO-152 PO (11:05)
[2022-03-08] MEDS ORDERED: MIDO2.5T2 PO (11:05)
[2022-03-08 11:20] VITALS: BP 105/48
[2022-03-08 15:37] LABS: BAND % (MANUAL) 1 % (0-10); EOSINOPHILS % (MANUAL) 1 % (0-8); LYMPHOCYTES % (MANUAL) 13 % (20-40); MONOCYTES % (MANUAL) 7 % (2-10); NEUTROPHILS % (MANUAL) 78 % (42-75)
[2022-03-08 15:39] VITALS: BP 105/50
== END 2022-03-08 17:00 | DRG 280 ==
LOC: ER 14:14 → TELE3 17:22
PROVIDERS: ADMIT Nurse Practitioner Acute Care; ATTEND Nurse Practitioner Acute Care
PROC: 0W9G3ZZ Drainage of Peritoneal Cavity, Percutaneous Approach (ICD-10-PCS; principal; 2022-03-07)
PROC: 30233R1 Transfusion of Nonautologous Platelets into Peripheral Vein, Percutaneous Approach (ICD-10-PCS; principal; 2022-03-07)
DX: K70.31 Alcoholic cirrhosis of liver with ascites (principal); D61.818 Other pancytopenia; E44.0 Moderate protein-calorie malnutrition; J81.1 Chronic pulmonary edema; E88.09 Other disorders of plasma-protein metabolism, not elsewhere classified; E03.9 Hypothyroidism, unspecified; K21.9 Gastro-esophageal reflux disease without esophagitis; F32.9 Major depressive disorder, single episode, unspecified; F41.9 Anxiety disorder, unspecified; Z20.822 Contact with and (suspected) exposure to COVID-19; E80.6 Other disorders of bilirubin metabolism; Z68.26 Body mass index [BMI] 26.0-26.9, adult; K40.90 Unilateral inguinal hernia, without obstruction or gangrene, not specified as recurrent; F10.21 Alcohol dependence, in remission
CPT/HCPCS: 36415; 70030-TC; 71045; 83690; 83735; 84100; 85025; 85730; 86850; 86900; 86901; 93005; G0378; J1940; J2270; J3475; J7040; P9035; P9047

== ENCOUNTER 2022-04-05 11:03 | Emergency (ER) | payer BC ==
[~2022-04-05] VITALS: Ht 165.1 cm; Wt 81.6 kg
[~2022-04-05 11:03] MED LIST changes: +CHOL100045 PO; +FURO-152 PO; +MIDO2.5T2 PO; -SPIR25TA6 PO
[2022-04-05 11:38] LABS: CREATININE 0.6 mg/dL (0.6-1.3); HEMATOCRIT 32.3 % (31.2-41.9); POTASSIUM 3.3 mmol/L (3.5-5.1)
[2022-04-05 11:40] LABS: MEAN CORPUSCULAR VOLUME 90.9 fL (75.5-95.3)
[2022-04-05 11:44] LABS: BILIRUBIN,DIRECT 0.7 mg/dL (0.0-0.2); BILIRUBIN,TOTAL 1.5 mg/dL (0.2-1.0)
[2022-04-05 11:46] LABS: PLATELET COUNT (AUTO) 44 K/uL (179-408)
--- NOTE | 2022-04-05 12:22 | NUR ---
"Plan to admit" per Dr Sigala. ER registration/admitting staff Jasmeet notified.
--- NOTE | 2022-04-05 12:30 | NUR ---
Per patient's insurance, this patient is "capitated to [facility]" per ER registration staff/admitting staff Saira. GOMEZ notified.
[2022-04-05] MEDS ORDERED: ONDANSETRON 4 MG/2 ML VIAL IV ONE (13:45)
[2022-04-05] MEDS ORDERED: MORPHINE SULFATE 4 MG/1 ML DISP.SYRIN IV ONE (13:45)
--- NOTE | 2022-04-05 13:48 | NUR ---
Patient keeps going to ER nurses/doctor's station after repeated reminders to stay in her room. Security assistance was requested by .
[2022-04-05] MEDS ORDERED: MORPHINE SULFATE 4 MG/1 ML DISP.SYRIN ONE (13:51)
[2022-04-05] MEDS ORDERED: ONDANSETRON 4 MG/2 ML VIAL ONE (13:51)
--- NOTE | 2022-04-05 13:52 | NUR ---
NPO maintained 2/2 abdominal pains. Patient is for transfer to another hospital, pending transfer information at this time. Medical information was given to nurse Olmstead (her transfer case resolution specialist of patient's insurance).
--- NOTE | 2022-04-05 14:22 | NUR ---
Patient is still waiting for transfer information from her reinsurance claims analyst. Ambulance authorization#[id number] was given by Nurse Olmstead at 1313. Medical records from ER was faxed at . Dr García accepted this patient for transfer after talking to our ER doctor.
--- NOTE | 2022-04-05 16:01 | NUR ---
Patient is sleeping comfortably in bed with eyes closed, NAD.
--- NOTE | 2022-04-05 16:06 | NUR ---
Patient will be tranferred to outside Facility: [facility] room 2248 Physician: KELLIE Location: direct admission room 2248 nurse : Akshat of [facility] accepted nursing SBAR@160 tele# BLS ambulance: [facility] KEV=[id number]
--- NOTE | 2022-04-05 17:14 | NUR ---
Patient left ER in stable condition with all her belongings.
[2022-04-05 20:10] LABS: BASOPHILS % (MANUAL) 6 % (0-2); EOSINOPHILS % (MANUAL) 3 % (0-8); LYMPHOCYTES % (MANUAL) 19 % (20-40); MONOCYTES % (MANUAL) 10 % (2-10); NEUTROPHILS % (MANUAL) 62 % (42-75)
== END 2022-04-05 17:14 | disposition short-term general hospital (02) ==
LOC: ER 11:05
DX: R18.8 Other ascites (principal); D70.9 Neutropenia, unspecified; D69.6 Thrombocytopenia, unspecified; K74.60 Unspecified cirrhosis of liver; Z86.16 Personal history of COVID-19; Z79.899 Other long term (current) drug therapy; K43.9 Ventral hernia without obstruction or gangrene; Z20.822 Contact with and (suspected) exposure to COVID-19
CPT/HCPCS: 99285; 96374; 71045; 96375; 87426; 80076; 80048; 83690; 85025; 85730; 36415; 85007; J2405; J2270; 70030-TC; A4663

== ENCOUNTER 2022-05-06 11:20 | Emergency (ER) | payer BC ==
[~2022-05-06] VITALS: Ht 165.1 cm; Wt 81.6 kg
--- NOTE | 2022-05-06 11:33 | NUR ---
DR Bennett seen and examined the pt.
[2022-05-06 11:42] LABS: HEMATOCRIT 31.6 % (31.2-41.9); MEAN CORPUSCULAR HEMOGLOBIN 30.1 uug (24.7-32.8); MEAN CORPUSCULAR VOLUME 91.6 fL (75.5-95.3)
--- NOTE | 2022-05-06 11:44 | NUR ---
COVID swab collected and sent to LAB.
[2022-05-06] MEDS ORDERED: POTA10TA10 PO (11:47)
[2022-05-06 12:04] LABS: BILIRUBIN,DIRECT 0.6 mg/dL (0.0-0.2); BILIRUBIN,TOTAL 1.4 mg/dL (0.2-1.0); CREATININE 0.6 mg/dL (0.6-1.3); POTASSIUM 3.6 mmol/L (3.5-5.1); TOTAL PROTEIN, SERUM 6.6 g/dL (6.4-8.2)
[2022-05-06 13:40] LABS: PLATELET COUNT (AUTO) 45 K/uL (179-408)
[2022-05-06] MEDS ORDERED: ONDANSETRON 4 MG/2 ML VIAL IV ONE (15:00)
[2022-05-06] MEDS ORDERED: MORPHINE SULFATE 4 MG/1 ML DISP.SYRIN IV ONE (15:00)
[2022-05-06] MEDS ORDERED: ONDANSETRON 4 MG/2 ML VIAL ONE (15:10)
[2022-05-06] MEDS ORDERED: MORPHINE SULFATE 4 MG/1 ML DISP.SYRIN ONE (15:10)
--- NOTE | 2022-05-06 15:38 | NUR ---
Pt to be picked up by [facility]. ETA 1625. Will continue to monitor.
--- NOTE | 2022-05-06 15:56 | NUR ---
Was informed by Samuel that ambulance transport will come to [facility] pt ETA 1620. Canceled [facility]. Will continue to monitor.
--- NOTE | 2022-05-06 16:49 | NUR ---
Pt transferred to [facility] ER. [facility] Unit #22 picked up pt. Gave report to Yariel Stewart Pt transferred safely
[2022-05-06 18:05] LABS: BASOPHILS % (MANUAL) 0 % (0-2); EOSINOPHILS % (MANUAL) 1 % (0-8); LYMPHOCYTES % (MANUAL) 20 % (20-40); MONOCYTES % (MANUAL) 14 % (2-10); NEUTROPHILS % (MANUAL) 65 % (42-75)
== END 2022-05-06 17:01 | disposition short-term general hospital (02) ==
LOC: ER 11:20
DX: K74.60 Unspecified cirrhosis of liver (principal); R18.8 Other ascites; D61.818 Other pancytopenia; Z86.16 Personal history of COVID-19; Z20.822 Contact with and (suspected) exposure to COVID-19; F41.9 Anxiety disorder, unspecified; F32.A Depression, unspecified; Z97.5 Presence of (intrauterine) contraceptive device; Z79.899 Other long term (current) drug therapy
CPT/HCPCS: 99285; 96374; 76705; 96375; 87426; 80076; 80048; 83690; 85025; 85610; 85007; J2405; J2270; 70030-TC; A4663

== ENCOUNTER 2022-05-26 20:18 | Emergency (ER) | payer BC ==
[~2022-05-26] VITALS: Ht 162.6 cm; Wt 72.6 kg
[~2022-05-26 20:18] MED LIST changes: -CHOL100045 PO; -FURO-152 PO; -MIDO2.5T2 PO; -POTA10CA43 PO; +POTA10TA10 PO; -RIFA550T PO; -VIT1TABL46 PO
--- NOTE | 2022-05-26 22:11 | NUR ---
LAB AT BEDSIDE DRAWING BLOOD.
[2022-05-26 22:23] LABS: MEAN CORPUSCULAR HEMOGLOBIN 30.2 uug (24.7-32.8); MEAN CORPUSCULAR VOLUME 92.4 fL (75.5-95.3); PLATELET COUNT (AUTO) 51 K/uL (179-408)
[2022-05-26 22:35] LABS: CREATININE 0.7 mg/dL (0.6-1.3)
[2022-05-26] MEDS ORDERED: ONDANSETRON ODT 4 MG TAB.RAPDIS SL ONE (22:45)
[2022-05-26] MEDS ORDERED: HYDROMORPHONE HCL 2 MG TABLET PO ONE (22:45)
[2022-05-26 22:46] LABS: BILIRUBIN,TOTAL 0.8 mg/dL (0.2-1.0); TOTAL PROTEIN, SERUM 6.6 g/dL (6.4-8.2)
[2022-05-26] MEDS ORDERED: ONDANSETRON HCL 4 MG TABLET ONE (22:50)
[2022-05-26] MEDS ORDERED: HYDROMORPHONE HCL 2 MG TABLET ONE (22:50)
[2022-05-26] MEDS ORDERED: IV D5W-0.45% NS +20 KCL 1,000 ML IV ONE (22:51)
[2022-05-26] MEDS: IV D5W-0.45% NS +20 KCL 1,000 ML IV ONE ×2 (23:03→23:15)
--- NOTE | 2022-05-26 23:15 | NUR ---
PT'S IV IN R WRIST INFILTRATED. IV D/C'D.
--- NOTE | 2022-05-26 23:15 | NUR ---
PT'S IV FLUID STOPPED BECAUSE IV INFILTRATED. PT REFUSED NEW IV.
--- NOTE | 2022-05-26 23:30 | NUR ---
PT REFUSED IV. AWARE,
--- NOTE | 2022-05-27 00:01 | NUR ---
AT BEDSIDE, CONSULTING WITH PT.
--- NOTE | 2022-05-27 00:20 | NUR ---
PATIENT HAS BEEN ACCEPTED BY DR GRANADO
--- NOTE | 2022-05-27 02:14 | NUR ---
called [facility] to ask for status. No transfer updates the moment
--- NOTE | 2022-05-27 02:38 | NUR ---
Endorsed to Pam ELIZONDO ER Charge Nurse - [facility].
--- NOTE | 2022-05-27 02:59 | NUR ---
Patient is ambulatory with steady gait.
[2022-05-27] MEDS ORDERED: HYDROMORPHONE HCL 2 MG TABLET ONE ×2 (03:01→03:08)
[2022-05-27] MEDS: HYDROMORPHONE HCL 2 MG TABLET PO ONE ×2 (03:03→03:09)
--- NOTE | 2022-05-27 03:07 | NUR ---
Patient accidentally dropped Dilaudid 2mg. Medication wasted. will pull out another tab
--- NOTE | 2022-05-27 03:07 | NUR ---
Artemio hunyh in [facility] - 05/27/22 at 0434 by CLAU Patient accidentally dropped medication. will pull out another tab
--- NOTE | 2022-05-27 03:09 | NUR ---
[facility] transfer center called. Ambulance ETA [phone]
--- NOTE | 2022-05-27 04:33 | NUR ---
Artemio huynh in ED - 05/27/22 at 0434 by CLAU Patient accidentally dropped Dilaudid 2mg. Medication wasted. will pull out another tab
--- NOTE | 2022-05-27 05:35 | NUR ---
Patient Tranfers to outside Facility; IN STABLE CONDITION VIA AMBULANCE / [facility] Physician: DR GRANADO Location: [facility] ER
== END 2022-05-27 05:35 ==
LOC: ER 20:21
DX: K74.60 Unspecified cirrhosis of liver (principal); R18.8 Other ascites; G89.4 Chronic pain syndrome; D61.818 Other pancytopenia; Z79.899 Other long term (current) drug therapy; Z20.822 Contact with and (suspected) exposure to COVID-19
CPT/HCPCS: 36415; 83690; 85025; 85610; 93005; A4663; Q0162